=== PATIENT | female | born 1935 | race American Indian/Alaskan Native ===

== ENCOUNTER 2018-01-16 11:25 | Day surgery (SDC) | payer MEDICARE ==
[~2018-01-16 11:25] MED LIST: IOPIDINE ONE; MYDRIACYL ONE; NEOFRIN ONE
[2018-01-16] MEDS ORDERED: NEOFRIN OD ONE (12:05)
[2018-01-16] MEDS ORDERED: IOPIDINE OD ONE ×2 (12:05→13:06)
[2018-01-16] MEDS ORDERED: MYDRIACYL OD ONE (12:05)
[2018-01-16 13:59] VITALS: BP 203/75
== END 2018-01-16 13:10 | disposition home or self-care (01) ==
LOC: OR 11:25
PROVIDERS: ATTEND Specialist
DX: H26.491 Other secondary cataract, right eye (principal); I10 Essential (primary) hypertension; K21.9 Gastro-esophageal reflux disease without esophagitis; M19.90 Unspecified osteoarthritis, unspecified site; Z87.891 Personal history of nicotine dependence